=== PATIENT | female | born 2000 | race Two or more races ===

== ENCOUNTER 2023-08-31 08:44 | Emergency (ER) | payer OTHER ==
[2023-08-31 09:45] LABS: SARS-CoV-2 NAA Rapid Test Not Detected (NotDetected)
== END 2023-08-31 10:11 | disposition home or self-care (01) ==
LOC: ERS 08:44
DX: B34.9 Viral infection, unspecified (principal); Z20.822 Contact with and (suspected) exposure to COVID-19
CPT/HCPCS: 99283